=== PATIENT | male | born 1985 | race Caucasian/White ===

== ENCOUNTER 2018-06-03 14:25 | Emergency (ER) | payer OTHER ==
[2018-06-03 14:53] VITALS: RESP 18; TEMP 98.5
[2018-06-03] MEDS ORDERED: IPRATROPIUM-ALBUTEROL 3 ML NEB INHALATION STA (15:33)
--- NOTE | 2018-06-03 15:35 | ED ---
General Adult HPI - General Chief complaint: Upper Respiratory Infection Stated complaint: Cough Time Seen by Provider: 06/03/18 15:29 Source: patient, RN notes reviewed, old records reviewed Mode of arrival: ambulatory Limitations: no limitations - History of Present Illness Initial comments: 33-year-old male patient with passed medical history of asthma presents to ED with approximately 2 weeks of productive cough. Patient is also had some sore throat during this time period waxing and waning. Patient denies any other symptoms. Patient denies any fevers or chills, chest pain, shortness of breath , abdominal pain. Systemic: Pt denies fatigue, myalgia, fever/chills, rash. Pt denies weakness, night sweats, weight loss. Neuro: Pt denies headache, visual disturbances, syncope or pre-syncope. HEENT: Pt denies ocular discharge or irritation, otalgia, rhinorrhea, pharyngitis or notable lymphadenopathy. Cardiopulmonary: Pt denies chest pain, SOB, heart palpitations, dyspnea on exertion. Abdominal/GI: Pt denies abdominal pain, n/v/d. : Pt denies dysuria, burning w/ urination, frequency/urgency. Denies new onset urinary or bowel incontinence. MSK: Pt denies myalgia, loss of strength or function in extremities. Neuro: Pt denies new onset weakness, paresthesias. - Related Data Previous Rx's Medication Instructions Recorded Albuterol Inhaler [Ventolin Hfa 1 - 2 puff INHALATION Q4-6H PRN #1 06/03/18 Inhaler] inhaler Albuterol Nebulized [Ventolin 2.5 mg INHALATION Q4H PRN 10 Days 06/03/18 Nebulized] nebu Azithromycin [Zithromax Z-pack] 0 mg PO DIRECTED #6 tab 06/03/18 methylPREDNISolone Dose Pack 4 mg PO DIRECTED #21 package 06/03/18 [Medrol Dose Pack] Allergies Allergy/AdvReac Type Severity Reaction Status Date / Time Penicillins Allergy Rash/Hives Verified 06/03/18 14:52 Review of Systems ROS Statement: Those systems with pertinent positive or pertinent negative responses have been documented in the HPI. ROS Other: All systems not noted in ROS Statement are negative. Past Medical History Past Medical History: Asthma History of Any Multi-Drug Resistant Organisms: None Reported Past Surgical History: No Surgical Hx Reported Past Psychological History: No Psychological Hx Reported Smoking Status: Current every day smoker Past Alcohol Use History: None Reported Past Drug Use History: None Reported General Exam - General Exam Comments Initial Comments: Constitutional: NAD, AOX3, Pt has pleasant affect. HEENT: NC/AT, trachea midline, neck supple, no lymphadenopathy. Posterior pharynx non erythematous, without exudates. External ears appear normal, without discharge. Mucous membranes moist. Eyes PERRLA, EOM intact. There is no scleral icterus. No pallor noted. Cardiopulmonary: RRR, no murmurs, rubs or gallops, no JVD noted. Mild amount of wheezing noted in anterior johns - resolved after breathing tx, lungs ctab in anterior and posterior johns. No peripheral edema. Abdominal exam: Abdomen soft and non-distended. Abdomen non-tender to palpation in all 4 quadrants. Bowel sounds active in LLQ. No hepatosplenomegaly. No ecchymosis Neuro: CN II-XII grossly intact. No nuchal rigidity. MSK: No posterior calf tenderness bilaterally, homans sign negative bilaterally. Posterior tibialis and radial pulse +2 bilaterally. Sensation intact in upper and lower extremities. Full active ROM in upper and lower extremities, 5/5 stregnth. Limitations: no limitations Course Vital Signs 06/03/18 06/03/18 06/03/18 14:51 16:14 16:20 Temperature 98.5 F Pulse Rate 75 80 78 Respiratory 18 Rate Blood Pressure 143/76 O2 Sat by Pulse 97 Oximetry 06/03/18 17:45 Temperature Pulse Rate 62 Respiratory 18 Rate Blood Pressure 138/90 O2 Sat by Pulse 99 Oximetry Medical Decision Making - Medical Decision Making 33-year-old male patient with passed medical history of asthma presents to ED with approximately 2 weeks of productive cough. Patient is also had some sore throat during this time period waxing and waning. Patient denies any other symptoms. Patient denies any fevers or chills, chest pain, shortness of breath , abdominal pain. Pt VSS, afebrile. Physical exam displayed: Mild amount of wheezing noted in anterior johns - resolved after breathing tx, lungs ctab in anterior and posterior johns. Chest x-ray displayed no acute Pulmonary process. Patient minutes of breathing treatment in ED, joey [facility]. Patient diagnosed with bronchitis. Patient prescribed albuterol inhaler, albuterol nebulizer solution. Azithromycin. Medrol Dosepak. Pt to follow up with pcp tomorrow. Pt to return to ED if new s/sx develop or if condition worsens in anyway. Case discussed in depth with Dr. Curiel. Disposition Clinical Impression: Acute bronchitis Disposition: HOME SELF-CARE Condition: Stable Instructions (If sedation given, give patient instructions): Acute Bronchitis ( ED), How Your Lungs Work (ED) Additional Instructions: Patient to adhere to previously discussed treatment plan and will take medication(s) as directed. Patient to follow up with PCP in 1-2 days. Patient to return to ED if symptoms do not improve. Prescriptions: Albuterol Inhaler [Ventolin Hfa Inhaler] 1 - 2 puff INHALATION Q4-6H PRN #1 inhaler PRN Reason: Cough Albuterol Nebulized [Ventolin Nebulized] 2.5 mg INHALATION Q4H PRN 10 Days nebu PRN Reason: Cough Azithromycin [Zithromax Z-pack] 0 mg PO DIRECTED #6 tab methylPREDNISolone Dose Pack [Medrol Dose Pack] 4 mg PO DIRECTED #21 package Is patient prescribed a controlled substance at d/c from ED?: No Referrals: Nonstaff,Physician [REFERRING] - 1-2 days Time of Disposition: 17:43
[2018-06-03] MEDS ORDERED: BENZONATATE 100 MG CAP PO STA (16:52)
[2018-06-03 17:53] VITALS: BP 138/90; PULSE 62
--- NOTE | 2018-06-03 18:20 | XR ---
EXAMINATION TYPE: XR chest 2V DATE OF EXAM: 06/03/2018 COMPARISON: None INDICATION: Chest pain history of asthma cough TECHNIQUE: Frontal and lateral views of the chest are obtained. FINDINGS: The heart size is normal. The pulmonary vasculature is normal. The lungs are clear. IMPRESSION: 1. No acute pulmonary process.
== END 2018-06-03 17:45 | disposition home or self-care (01) ==
LOC: EC 14:25
DX: J20.9 Acute bronchitis, unspecified (principal); F17.200 Nicotine dependence, unspecified, uncomplicated; Z88.0 Allergy status to penicillin; Z87.09 Personal history of other diseases of the respiratory system
CPT/HCPCS: 71046; 94640; 99284

== ENCOUNTER 2018-10-11 14:51 | Emergency (ER) | payer OTHER ==
[2018-10-11 14:58] VITALS: BP 150/94; PULSE 81; RESP 16; TEMP 97.6
--- NOTE | 2018-10-11 15:22 | ED ---
General Adult HPI - General Chief complaint: Extremity Injury, Upper Stated complaint: hand injury, [facility] Time Seen by Provider: 10/11/18 14:59 Source: patient Mode of arrival: ambulatory Limitations: no limitations - History of Present Illness Initial comments: Patient is a 33-year-old male presents emergency Department with numbness and tingling in the right hand. Patient reports is started gradually over the last 2 days while he was working. 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 Patient reports cramping and stiffness in his right hand along with intermittent numbness. Patient denies a history of carpal tunnel. Patient denies taking medication to alleviate the pain. Patient states the pain does not radiate anywhere and is only localized to the wrist. - Related Data Previous Rx's Medication Instructions Recorded Albuterol Inhaler [Ventolin Hfa 1 - 2 puff INHALATION Q4-6H PRN #1 06/03/18 Inhaler] inhaler Albuterol Nebulized [Ventolin 2.5 mg INHALATION Q4H PRN 10 Days 06/03/18 Nebulized] nebu Azithromycin [Zithromax Z-pack] 0 mg PO DIRECTED #6 tab 06/03/18 methylPREDNISolone Dose Pack 4 mg PO DIRECTED #21 package 06/03/18 [Medrol Dose Pack] Allergies Allergy/AdvReac Type Severity Reaction Status Date / Time Penicillins Allergy Rash/Hives Verified 10/11/18 14:58 Review of Systems ROS Statement: Those systems with pertinent positive or pertinent negative responses have been documented in the HPI. ROS Other: All systems not noted in ROS Statement are negative. Past Medical History Past Medical History: Asthma History of Any Multi-Drug Resistant Organisms: None Reported Past Surgical History: No Surgical Hx Reported Past Psychological History: No Psychological Hx Reported Smoking Status: Current every day smoker Past Alcohol Use History: None Reported Past Drug Use History: None Reported General Exam - General Exam Comments Initial Comments: General: Well-developed well-nourished distress HEENT: Normocephalic/atraumatic, PERLL, pharynx erythema, swallowing well, EAC no erythema, no exudates, TM clear, no cervical lymph nodes Neck: Supple, nontender, trachea midline Chest/Lungs: Normal respirations, no signs of respiratory distress clear to auscultation bilaterally no wheezes, rales, rhonchi Cardiac: Regular rate and rhythm, normal S1-S2, no murmurs rubs or gallops Abdomen/GI: Soft nontender, bowel sounds equal or quadrant x4, no guarding, no rebound no CVA tenderness Musculoskeletal: Positive Tinel test and Phalen test in right hand. Normal capillary refill on right hand. +2 ulnar and radial pulses. Skin: Warmth, no rashes or lesions, no cyanosis or diaphoresis Neurologic: AAO x 3, CN 2-12 intact, Psychiatric: Mood and affect normal, judgment normal Limitations: no limitations Course Vital Signs 10/11/18 14:55 Temperature 97.6 F Pulse Rate 81 Respiratory 16 Rate Blood Pressure 150/94 O2 Sat by Pulse 98 Oximetry Procedures - Orthopedic Splinting/Casting Injury #1 Side: right Upper Extremity Injury Location: hand Medical Decision Making - Medical Decision Making Patient is a 33-year-old male presents emergency Department with right hand pain. Based on physical examination and history of suspect the patient to have potential carpal tunnel due to positive Phalen and Termo test. Patient advised to rest and and apply a brace. Abdon wrap was applied.. Patient advised to follow-up with orthopedics. Patient advised to return to emergency department since worsen. Case discussed physician. Disposition Clinical Impression: Carpal tunnel syndrome of right wrist Disposition: HOME SELF-CARE Condition: Stable Instructions (If sedation given, give patient instructions): Paresthesia (ED), Carpal Tunnel Surgery (DC) Additional Instructions: Please follow-up with orthopedics. Alternate between Tylenol and ibuprofen for pain control. Please attempt not to use right hand as often while working. Please return to emergency department if symptoms worsen. Is patient prescribed a controlled substance at d/c from ED?: No Referrals: Brigido Meza [Primary Care Provider] - 1-2 days Maxx Woo DO [Doctor of Osteopathic Medicine] - 1-2 days Time of Disposition: 15:31
== END 2018-10-11 15:39 | disposition home or self-care (01) ==
LOC: EC 14:51
DX: G56.01 Carpal tunnel syndrome, right upper limb (principal); F17.200 Nicotine dependence, unspecified, uncomplicated; Z88.0 Allergy status to penicillin
CPT/HCPCS: 99283